=== PATIENT | female | born 2000 | race Caucasian/White ===

== ENCOUNTER 2022-01-13 11:53 | Emergency (ER) | payer MEDICAID, SELFPAY ==
[2022-01-13 11:54] VITALS: BP 124/89; PULSE 102; RESP 14; TEMP 36.2; O2SAT 99; BMI 24.2
--- NOTE | 2022-01-13 12:03 | EKG12_ITS ---
Test Reason : CP Blood Pressure : / mmHG Vent. Rate : 088 BPM Atrial Rate : 088 BPM P-R Int : 152 ms QRS Dur : 078 ms QT Int : 376 ms P-R-T Axes : 066 070 048 degrees QTc Int : 454 ms Sinus rhythm with marked sinus arrhythmia Otherwise normal ECG Confirmed by STORMY GOULD, KANIKA ([id number]), supervising film or videotape editor REBECCA ESTRELLA ([id number]) on 01/17/2022 1:32:37 PM Referred By: ORA/MICHI Confirmed By:KANIKA BURROWS MD
--- NOTE | 2022-01-13 12:55 | RAD_ITS ---
STUDY: X-RAY CHEST REASON FOR EXAM: Female, 21 years old. Intermittent bilateral chest pain worse on inspiration. TECHNIQUE: PA and lateral views of the chest. COMPARISON: None. FINDINGS: The lungs are clear and expanded. There is no demonstrated pleural abnormality. Normal size heart. Normal mediastinum and sierra. Normal visualized pulmonary arteries. Normal visualized aortic arch and descending thoracic aorta. Normal visualized thoracic spine. Normal visualized ribs, clavicles, and shoulders. There is no demonstrated abnormality of the visualized soft tissue structures of the upper abdomen. RAD/Chest PA and Lateral IMPRESSION: Normal x-ray examination of the chest. Electronically Signed: Saran Gomez MD at 13:32 EDT ,
--- NOTE | 2022-01-13 12:56 | ED.VIS.CHEST ---
HPI History of Present Illness Chief Complaint: Chest Pain Narrative Narrative: 21-year-old female presenting with chest pain. She states it is right-sided. Sometimes just on the left side. It does hurt worse when she breathes and takes a deep breath however it also feels worse when she moves her right shoulder. It is not sharp or pleuritic in nature. No fever, chills, cough. No history of cardiac disease. No asthma. She is a non-smoker. She denies any medical problems. 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 No DVT/PE risk factors or history. PFSH PFS Medical History no medical history Home Medications No Known/Unobtainable [No Known Home Medications] 08/01/13 [History Last Taken Unknown] Allergy/AdvReac Type Severity Reaction Status Date / Time No Known Allergies Allergy Verified 08/01/13 12:55 Social History Smoking Status: Never smoker ROS ROS ED Constitutional Constitutional ED: Denies chills or fever(s) Eyes Eyes: Denies blurry vision or change in vision ENT ENT ED: Denies rhinorrhea or sore throat Cardiovascular Cardiovascular: Reports as per HPI Respiratory/Chest Respiratory/Chest: Denies cough, dyspnea or sputum Gastrointestinal Gastrointestinal: Denies abdominal pain, nausea or vomiting Genitourinary Genitourinary ED: Denies dysuria or hematuria Musculoskeletal Musculoskeletal: Denies arthralgias or myalgias Integumentary Denies rash Neurologic Neurologic: Denies headache(s), paresthesias or weakness Psychiatric Psychiatric: Denies anxiety or depression EXAM Physical Exam Const Vital Signs: 01/13/22 11:54 01/13/22 12:36 Temperature 97.1 F L Temperature Source Temporal Pulse Rate 102 H Respiratory Rate 14 Respiratory Pattern Normal Blood Pressure 124/89 H Blood Pressure Mean 100 Pulse Ox 99 Oxygen Delivery Method Room Air Positive well nourished and well developed General Appearance ED: well developed and NAD; Negative for pallor HEENT normocephalic and atraumatic Eyes PERRL and EOMs intact bilaterally Neck no lymphadenopathy and supple Chest Wall inspection of chest normal and palpation of chest normal Resp normal respiratory effort and clear to auscultation bilaterally Auscultation: Negative for rales, rhonchi or wheezes Cardio regular rate and regular rhythm Extremity normal to inspection General Extremety ED: Negative for edema or tenderness General Extremity: Negative for edema Neuro oriented x3 Sensorium / Orientation: awake and alert Psych mental status grossly normal Skin no rashes or lesions noted and no wounds General Skin Exam: Negative for jaundice or pallor MDM MDM MDM Narrative Medical decision making narrative: Protocol EKG was performed on arrival which shows a normal sinus rhythm with a ventricular rate of 88 bpm without sign of ischemic change on my interpretation. Patient otherwise healthy and has no cardiac risk factors. No history of DVT/PE and no risk factors for this either. Heart and lung exams are normal. Vital signs stable and she is afebrile. Chest x-ray on my interpretation shows no acute cardiopulmonary process and radiologist agree. Patient counseled alternate Tylenol and ibuprofen for pain. She can return precautions. She will be given follow-up with her primary care provider. Impression: 1. Chest wall pain Radiography Diagnostic Testing: Clinical Impression(s) from Imaging Studies Chest X-Ray 01/13/22 12:55 IMPRESSION: Normal x-ray examination of the chest. Electronically Signed: Saran Gomez MD at 13:32 EDT , Discharge Plan Triage Chief Complaint: Chest Pain ED Provider: aHrsh Telles Dx/Rx/DC Orders Instructions: ED Chest Pain, Uncertain Cause Prescriptions: No Action No Known Home Medications RF: 0 Primary Care Provider: Care Physician,No Primary Referrals: Alondra Hodgson MD [STAFF PHYSICIAN] - 3-5 Days Care Physician,No Primary [Primary Care Provider] - Disposition Disposition: Home, Self Care
--- NOTE | 2022-01-13 14:30 | CM.ED ---
SW Note Referral Source: Case Find Referral Reason: No PCP SW met with patient. SW provided patient with [facility] Healthcare Provider Directory and encouraged patient to follow up with a PCP. No issues or concerns voiced. SW remains available if needs arise. Plan: Resources Ayde FLORES
[2022-01-13 14:38] VITALS: BP 121/76; PULSE 81; RESP 14; O2SAT 98
== END 2022-01-13 14:39 | disposition home or self-care (01) ==
PROVIDERS: Emergency Provider Student in an Organized Health Care Education/Training Program; Visit Provider Student in an Organized Health Care Education/Training Program
DX: R07.89 Other chest pain (principal)
CPT/HCPCS: 71046; 93005; 99282

== ENCOUNTER 2022-05-12 20:18 | Emergency (ER) | payer MEDICAID, SELFPAY ==
[2022-05-12 20:20] VITALS: BP 142/96; PULSE 113; RESP 15; TEMP 36.4; O2SAT 100; BMI 24.1
--- NOTE | 2022-05-12 20:28 | EKG12_ITS ---
Test Reason : DYSRHYTHMIA Blood Pressure : / mmHG Vent. Rate : 085 BPM Atrial Rate : 085 BPM P-R Int : 140 ms QRS Dur : 078 ms QT Int : 372 ms P-R-T Axes : 060 051 030 degrees QTc Int : 442 ms Sinus rhythm with marked sinus arrhythmia Otherwise normal ECG Confirmed by FALLON GOULD, WILLIAN ([id number]), mapping editor REBECCA ESTRELLA ([id number]) on 05/13/2022 2:14:55 PM Referred By: ERNIE Confirmed By:DANIEL LEHMAN MD
[2022-05-12 20:36] LABS: Bacteria 0 SEEN /hpf (None Seen); Mucous, Urine 0 SEEN /hpf (<or=2+); White Blood Cells 0 SEEN /hpf (0-5)
[2022-05-12 20:43] LABS: Color, Urine Yellow (Yellow); Glucose, Dipstick Normal (Normal); Ketone-Dipstick Negative (Negative); Leukocyte Esterase-Dipstick Negative /ul (Negative); Nitrite-Dipstick Negative (Negative); Occult Blood-Urine 10 /ul (Negative); Protein-Dipstick Negative (Negative); Specific Gravity, Urine 1.005 (1.002-1.030); Urine Bilirubin Dipstick Negative (Negative); Urine Clarity Clear (Clear); Urine Urobilinogen Normal (Normal)
[2022-05-12 20:46] LABS: Internal QC Validated? YES +Cl - CLEAR BKGD; Pregnancy, Urine Negative Negative
[2022-05-12 20:59] LABS: Red Blood Cells-Urine 0-5 SEEN /hpf (0-5); Squamous Epithelial Cells - UA 0-5 SEEN /hpf (5-10)
--- NOTE | 2022-05-12 21:16 | EX.ED.DYSGE1 ---
HPI History of Present Illness Chief Complaint: Palpitations Informant: patient Narrative Narrative: Patient had an episode of palpitations tonight. She was playing a video game and just felt like her heart was fast. She measured it and she thinks it was over 800. She was not syncopal presyncopal. She was not short of breath. It is better now but it does come and go. However she has been having episodes of this for the last few months. She had something like this when she was a young child and she was worked up for asthma. But her symptoms went away and she never had treatment. She has no recent travel surgery immobilization personal family history of DVT or PE. No history of family heart disease. No sudden early . She is on no medications including no control hormonal therapy or [id number] meds. Denies street drugs. [facility] Medical History Chest pain Home Medications No Known/Unobtainable [No Known Home Medications] 08/01/13 [History Last Taken Unknown] Allergy/AdvReac Type Severity Reaction Status Date / Time No Known Allergies Allergy Verified 05/12/22 20:22 Social History Smoking Status: Current every day smoker tobacco type: cigarettes ROS ROS ED Constitutional Constitutional ED: Denies chills or fever(s) Eyes Eyes: Denies blurry vision or change in vision ENT ENT ED: Denies rhinorrhea or sore throat Cardiovascular Cardiovascular: Reports palpitations and racing heartbeat; Denies chest pain Respiratory/Chest Respiratory/Chest: Denies cough or dyspnea Gastrointestinal Gastrointestinal: Denies nausea or vomiting Genitourinary Genitourinary ED: Denies dysuria or hematuria Musculoskeletal Musculoskeletal: Denies arthralgias or myalgias Integumentary Denies rash Neurologic Neurologic: Denies weakness Psychiatric Psychiatric: Reports other Details: Patient denies known history of anxiety ; Denies anxiety Endocrine Endocrinology: Denies polydipsia or polyuria Hematologic/Lymphatic Hematologic/Lymphatic: Denies easy bleeding or easy bruising Allergic/Immunologic Allergic/Immunologic ED: Denies urticaria EXAM Physical Exam Const Vital Signs: 05/12/22 20:20 05/12/22 21:32 05/12/22 21:57 Temperature 97.6 F L Temperature Source Temporal Pulse Rate 113 H 99 70 Respiratory Rate 15 20 H 16 Blood Pressure 142/96 H 132/77 H 132/77 H Blood Pressure Mean 111 95 95 Pulse Ox 100 100 100 Oxygen Delivery Method Room Air Room Air Room Air Positive well nourished and well developed Constitutional Narrative: When I see her she has a heart rate of 77. Respiratory rate of 14. O2 sat 100% on room air showing no hypoxia. General Appearance ED: well developed and NAD; Negative for pallor HEENT Reports moist mucous membranes Eyes General Eye ED: Negative for pale conjunctiva or scleral icterus Neck supple Resp normal respiratory effort and clear to auscultation bilaterally Resp Narrative: No pain with deep breath. Auscultation: Negative for rales, rhonchi or wheezes Cardio regular rate and regular rhythm Rhythm: Negative for abnormal rhythm GI normal to inspection, nondistended, normoactive bowel sounds and non-tender Palpation: soft Back/Spine no CVA tenderness Extremity normal to inspection Extremity Narrative: No tenderness, cords, asymmetry, distended veins or tenderness along the deep venous system. General Extremety ED: Negative for edema or tenderness General Extremity: Negative for edema Neuro Sensorium / Orientation: alert Psych mental status grossly normal Skin General Skin Exam: Negative for jaundice or pallor MDM MDM MDM Narrative Medical decision making narrative: Patient has had no episodes of tachycardia or dysrhythmia here on the monitor. Urinalysis, , CBC, electrolytes are all normal. She is asymptomatic. We discussed foods drinks and activities to avoid. Plan will be follow-up. Lab Data Attestation: I reviewed the patient's lab results. Labs: Laboratory Results - last 24 hr 05/12/22 05/12/22 05/12/22 20:30 21:40 21:40 WBC 10.1 RBC 4.57 Hgb 13.9 Hct 41.7 MCV 91.2 MCH 30.4 MCHC 33.3 RDW Std Deviation 41.3 RDW Coeff of Li 12.5 Plt Count 389 MPV 9.4 Immature Gran % (Auto) 0.200 Neut % (Auto) 80.3 H Lymph % (Auto) 14.8 L [place] % (Auto) 4.2 Eos % (Auto) 0.2 Baso % (Auto) 0.3 Absolute Neuts (auto) 8.1 H Absolute Lymphs (auto) 1.50 Nucleated RBC % 0 Sodium 140 Potassium 3.7 Chloride 108 H Carbon Dioxide 22.0 Anion Gap 10 BUN 10 Creatinine 0.90 Estim Creat Clear Calc 97.77 Est GFR (MDRD) Af Amer 103 Est GFR (MDRD) Non-Af 85 BUN/Creatinine Ratio 11.2 Glucose 100 Calcium 9.8 Urine Color Yellow Urine Clarity Clear Urine pH 7.0 Ur Specific [place] 1.005 Urine Protein Negative Urine Glucose (UA) Normal Urine Ketones Negative Urine Occult Blood 10 H Urine Nitrite Negative Urine Bilirubin Negative Urine Urobilinogen Normal Ur Leukocyte Esterase Negative Urine RBC 0-5 SEEN Urine WBC 0 SEEN Ur Squamous Epith Cells 0-5 SEEN Urine Bacteria 0 SEEN Urine Mucus 0 SEEN Urine Test Negative EKG Initial EKG: Comments: EKG done for palpitations read by me shows sinus rhythm with some sinus arrhythmia. No ectopy noted. No acute ST elevation or depression. IL interval, QRS duration and QTc are normal. Discharge Plan Triage Chief Complaint: Palpitations ED Provider: Rao Fournier Dx/Rx/DC Orders Clinical Impression: Heart palpitations Instructions: ED Palpitations Prescriptions: No Action No Known Home Medications Primary Care Provider: Care Physician,No Primary Referrals: Yee Carballo MD [Med Staff - Active Staff] - 3-5 Days Care Physician,No Primary [Primary Care Provider] - Disposition Disposition: Home, Self Care
[2022-05-12 21:32] VITALS: BP 132/77; PULSE 99; RESP 20; O2SAT 100
[2022-05-12 21:47] LABS: Absolute Neutrophil Count 8.1 X10^3/uL (2.0-7.7); Basophil# 0.03 X10^3/uL; Basophil% 0.3 % (0-1); Eosinophil# 0.02 X10^3/uL; Eosinophils% 0.2 % (0-5); Hematocrit 41.7 % (37-47); Hemoglobin 13.9 g/dL (12.0-15.0); Lymphocyte % 14.8 % (19-41); Mean Corp Hgb Conc 33.3 g/dL (32-36); Mean Corpuscular Hgb 30.4 pg (27.0-32.0); Mean Corpuscular Volume 91.2 fL (81-99); Mean Platelet Vol. 9.4 fl (6.2-12.0); Monocyte# 0.43 X10^3/uL; Monocyte% 4.2 % (0-10); NRBC Flagged by Analyzer 0 % (0-5); Neutrophil # 8.13 X10^3/uL (2.7-7.7); Neutrophil % 80.3 % (47-70); Platelet Count 389 K/mm3 (150-450); RBC Distribution Width CV 12.5 % (11.6-14.6); RBC Distribution Width SD 41.3 fl (35.1-43.9); Red Blood Count 4.57 M/mm3 (4.2-5.4); White Blood Count 10.1 K/mm3 (4.4-11.0)
[2022-05-12 21:57] VITALS: BP 132/77; PULSE 70; RESP 16; O2SAT 100
[2022-05-12 22:00] LABS: Anion Gap 10 (5-15); BUN 10 mg/dL (7-18); BUN/Creat Ratio 11.2 RATIO (10-20); Calcium,Total 9.8 mg/dL (8.5-10.1); Chloride 108 mmol/L (98-107); EST Glomerular Filtration Rate 85 mL/min (>60); Est Glom Filt Rate - Afr Amer 103 mL/min (>60); Estimated Creatinine Clearance 97.77 ml/min; Glucose 100 mg/dL (74-106); Potassium 3.7 mmol/L (3.5-5.1); Sodium Level 140 mmol/L (136-145)
[2022-05-12 22:58] VITALS: PULSE 64; RESP 13; O2SAT 97
== END 2022-05-12 22:58 | disposition home or self-care (01) ==
PROVIDERS: Emergency Provider Emergency Medicine; Visit Provider Emergency Medicine
DX: R00.2 Palpitations (principal); F17.210 Nicotine dependence, cigarettes, uncomplicated
CPT/HCPCS: 36415; 80048; 81001; 81025; 85025; 93005; 99283; A4216

== ENCOUNTER → 2022-09-06 | Outpatient (CLI) | payer MEDICAID, SELFPAY | END | disposition home or self-care (01) | LOC: PSN 09:53 | PROVIDERS: PCP Internal Medicine; Visit Provider Internal Medicine | DX: R00.2 Palpitations (principal) | CPT/HCPCS: 93225; 93226 ==

== ENCOUNTER → 2022-10-12 | Outpatient (CLI) | payer MEDICAID, SELFPAY ==
[2022-10-12 12:34] LABS: Absolute Lymphocyte Count 3.11 X10^3/uL (0.83-4.51); Absolute Neutrophil Count 3.9 X10^3/uL (2.0-7.7); Basophil# 0.04 X10^3/uL; Basophil% 0.5 % (0-1); Eosinophil# 0.09 X10^3/uL; Eosinophils% 1.2 % (0-5); Hemoglobin 13.2 g/dL (12.0-15.0); Lymphocyte # 3.11 X10^3/ul (0.83-4.51); Lymphocyte % 41.5 % (19-41); Mean Corp Hgb Conc 32.2 g/dL (32-36); Mean Corpuscular Hgb 30.7 pg (27.0-32.0); Mean Corpuscular Volume 95.3 fL (81-99); Mean Platelet Vol. 10.3 fl (6.2-12.0); Monocyte# 0.38 X10^3/uL; Monocyte% 5.1 % (0-10); NRBC Flagged by Analyzer 0 % (0-5); Neutrophil # 3.86 X10^3/uL (2.7-7.7); Neutrophil % 51.6 % (47-70); Platelet Count 427 K/mm3 (150-450); RBC Distribution Width CV 12.1 % (11.6-14.6); RBC Distribution Width SD 42.5 fl (35.1-43.9); White Blood Count 7.5 K/mm3 (4.4-11.0)
[2022-10-12 12:49] LABS: AST(SGOT) 28 U/L (15-37); Alanine Aminotransfer ALT/SGPT 46 U/L (13-56); Alkaline Phosphatase 65 U/L (45-117); Anion Gap 6 (5-15); BUN 16 mg/dL (7-18); BUN/Creat Ratio 19.1 RATIO (10-20); Calcium,Total 9.3 mg/dL (8.5-10.1); Chloride 106 mmol/L (98-107); Cholesterol 207 mg/dL (200); Creatinine, Serum 0.84 mg/dL (0.55-1.02); EST Glomerular Filtration Rate 92 mL/min (>60); Est Glom Filt Rate - Afr Amer 111 mL/min (>60); Globulin 3.9 g/dL (2.2-4.2); Glucose 92 mg/dL (74-106); High Density Lipoprotein 76 mg/dL; Magnesium 2.2 mg/dL (1.6-2.6); Potassium 4.5 mmol/L (3.5-5.1); Protein, Total 7.9 g/dL (6.4-8.2); Sodium Level 140 mmol/L (136-145); Thyroid Stim Hormone (TSH) 6.22 uIU/mL (0.358-3.74); Triglycerides 50 mg/dL; Troponin-I HS < 3 pg/mL (3.0-54.0); Very Low Density Lipoprotein 10 mg/dL (5-40)
[2022-10-12 13:21] LABS: Hemoglobin A1c 4.8 % (3.8-5.6)
[2022-10-12 16:03] LABS: Free T3 3.2 pg/mL (2.18-3.98); T4 Total, Thyroxin 8.9 ug/dL (4.8-13.9)
== END | disposition home or self-care (01) ==
LOC: BIMLAB 09:09
PROVIDERS: PCP Internal Medicine; Referring Provider Internal Medicine; Visit Provider Internal Medicine
DX: R00.2 Palpitations (principal); R79.89 Other specified abnormal findings of blood chemistry; Z79.899 Other long term (current) drug therapy
CPT/HCPCS: 36415; 80053; 80061; 83036; 83735; 84436; 84443; 84481; 84484; 85025

== ENCOUNTER → 2022-11-07 | Outpatient (CLI) | payer MEDICAID, SELFPAY ==
--- NOTE | 2022-11-07 14:00 | ECHOD_ITS ---
Reason For Study: PALPITATIONS Procedure This was a 2D Doppler, Color Flow transthoracic echocardiogram. Exam performed in department. Left Ventricle Normal LV size. Left ventricular systolic function is normal. Normal diastology for age. No regional wall motion abnormalities noted. Right Ventricle Normal RV size. Normal systolic function. Atria Normal left atrium. Normal right atrium. Mitral Valve Normal mitral valve. Tricuspid Valve Normal tricuspid valve. Aortic Valve Normal aortic valve. Pulmonic Valve Normal pulmonic valve. Great Vessels Normal aortic root. The pulmonary artery is normal size. Normal inferior vena cava. Pericardium/Pleural No pericardial effusion. MMode/2D Measurements & Calculations LVIDd: 4.8 cm IVSd: 0.65 cm Ao root diam: 2.8 cm LVIDs: 3.3 cm LVPWd: 0.75 cm RVDd: 3.0 cm FS: 31.7 % LAV(MOD-bp): 33.8 ml LVAd ap4: 28.7 cm2 SV(MOD-sp4): 51.9 ml LAV(MOD-bp) Indexed: 17.3 ml/m2 LVLd ap4: 8.2 cm LAV(MOD-sp2): 33.1 ml EDV(MOD-sp4): 84.4 ml LAV(MOD-sp4): 32.1 ml EDV(sp4-el): 85.6 ml LVAs ap4: 15.7 cm2 LVLs ap4: 6.4 cm ESV(MOD-sp4): 32.4 ml ESV(sp4-el): 32.7 ml EF(MOD-sp4): 61.5 % EF(sp4-el): 61.8 % SV(sp4-el): 52.9 ml LA A4 area: 13.4 cm2 LA dimension(2D): 3.4 cm RA A4 area: 11.1 cm2 Time Measurements MV dec time: 0.16 sec Doppler Measurements & Calculations MV E max tyrese: 98.5 cm/sec Lat Peak E' Tyrese: 24.8 cm/sec Med Peak E' Tyrese: 16.4 cm/sec MV A max tyrese: 60.6 cm/sec E/E' lat: 4.0 E/E' med: 6.0 MV E/A: 1.6 Ao V2 max: 138.2 cm/sec LV V1 max: 95.0 cm/sec PA V2 max: 110.9 cm/sec Ao max P.6 mmHg LV V1 max P.6 mmHg ECHO/Echo Complete Interpretation Summary Normal LV size. Left ventricular systolic function is normal. Structurally normal valves. Ordering Physician: Ajay Dumont Referring Physician: LEVON DUONG Performed By: Criselda Griffin RDCS
== END | disposition home or self-care (01) ==
LOC: CVS 13:58
PROVIDERS: PCP Internal Medicine; Referring Provider Internal Medicine Cardiovascular Disease; Visit Provider Internal Medicine Cardiovascular Disease
DX: R00.2 Palpitations (principal); I44.1 Atrioventricular block, second degree
CPT/HCPCS: 93306